=== PATIENT | female | born 1990 | race Caucasian/White ===

== ENCOUNTER 2016-08-16 19:03 | Emergency (ER) | payer MEDICAID ==
[~2016-08-16] VITALS: Ht 165.1 cm; Wt 143.8 kg
[2016-08-16 19:09] VITALS: BP 154/97
[2016-08-16] MEDS ORDERED: DEXAMETHASONE 4 MG TABLET PO STA (19:48)
[2016-08-16] MEDS ORDERED: DEXAMETHASONE 4 MG TABLET ONE (19:53)
== END 2016-08-16 20:00 | disposition home or self-care (01) ==
LOC: ED 19:56
DX: J20.8 Acute bronchitis due to other specified organisms (principal); H10.32 Unspecified acute conjunctivitis, left eye
CPT/HCPCS: 99283

== ENCOUNTER 2016-12-25 13:17 | Emergency (ER) | payer MEDICAID ==
[~2016-12-25] VITALS: Ht 170.2 cm; Wt 144.6 kg
[2016-12-25 13:24] VITALS: BP 144/88
[2016-12-25 14:35] LABS: BLOOD UREA NITROGEN 10 mg/dL (7-18)
[2016-12-25 14:39] LABS: ASPARTATE AMINO TRANSFERASE 17 U/L (15-37)
[2016-12-25 15:17] LABS: HCG UR OBC PASS
== END 2016-12-25 15:53 | disposition home or self-care (01) ==
LOC: ED 15:48
DX: R11.2 Nausea with vomiting, unspecified (principal); N30.00 Acute cystitis without hematuria
CPT/HCPCS: 36415; 80053; 81001; 81025; 83690; 85025; 87086; 99284

== ENCOUNTER 2016-12-26 19:41 | Emergency (ER) | payer MEDICAID ==
[~2016-12-26] VITALS: Ht 170.2 cm; Wt 143.0 kg
[2016-12-26] MEDS ORDERED: ONDANSETRON ODT 4 MG PO ONE (20:30)
[2016-12-26 21:57] LABS: BLOOD UREA NITROGEN 13 mg/dL (7-18)
[2016-12-26 22:00] LABS: ASPARTATE AMINO TRANSFERASE 18 U/L (15-37)
[2016-12-26 22:03] LABS: HCG UR OBC PASS
[2016-12-26 22:37] VITALS: BP 117/75
== END 2016-12-26 22:41 | disposition home or self-care (01) ==
LOC: ED 21:14
DX: R11.2 Nausea with vomiting, unspecified (principal); R10.9 Unspecified abdominal pain
CPT/HCPCS: 36415; 80053; 81025; 83690; 85025; 99284

== ENCOUNTER 2018-07-25 19:28 | Emergency (ER) | payer SELFPAY ==
[~2018-07-25] VITALS: Ht 165.1 cm; Wt 127.5 kg
--- NOTE | 2018-07-25 20:00 | NUR ---
PT. TO ED WITH C/O LEFT RIB/SIDE PAIN WORSE WITH DEEP BREATHING. DENIES ANY RECENT LONG TRAVEL. DENIES BIRHT CONTROL USE. 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 DENIES ANY MEDICAL HX OR DAILY MEDS. DR. CURRAN HAS BEEN IN TO EVAL AND DISCUSS POC. CALL LIGHT IN REACH. EKG WAS DONE IN TRIAGE.
[2018-07-25 20:26] LABS: ANION GAP 3 mmol/L (5-15); CHLORIDE 110 mmol/L (98-107); CREATININE 0.86 mg/dL (0.55-1.02)
--- NOTE | 2018-07-25 21:05 | NUR ---
CHART UP FOR RECHECK BY SONA.
[2018-07-25 21:10] VITALS: BP 138/70
== END 2018-07-25 21:16 | disposition home or self-care (01) ==
LOC: ED 21:10
DX: R07.89 Other chest pain (principal); M54.9 Dorsalgia, unspecified
CPT/HCPCS: 36415; 71045; 80048; 82040; 85379; 93005; 99284

== ENCOUNTER 2020-05-07 07:45 | Emergency (ER) | payer MEDICAID, MEDICARE ==
[~2020-05-07] VITALS: Ht 165.1 cm; Wt 130.1 kg
[~2020-05-07 07:45] MED LIST: ACET650S12 PR; CLIN300C9 PO
[2020-05-07] MEDS ORDERED: KETOROLAC 30 MG/1 ML ONE (08:15)
[2020-05-07] MEDS ORDERED: DIAZEPAM 5 MG TABLET ONE (08:15)
[2020-05-07] MEDS ORDERED: HYDROcodone/APAP 5/325 TABLET ONE (08:16)
--- NOTE | 2020-05-07 08:25 | NUR ---
PATIENT IS A 30F WHO STARTED HAVING LOWER BACK PAIN RADIATING DOWN HER LEFT LEG YESTERDAY AFTER BENDING TO PICK SOMETHING UP. MEDICATED THE PATIENT PER EMAR AND SHE IS RESTING COMFORTABLY. CALL LIGHT WITHIN REACH.
[2020-05-07] MEDS ORDERED: DIAZEPAM 5 MG TABLET PO ONE (08:30)
[2020-05-07] MEDS ORDERED: HYDROcodone/APAP 5/325 TABLET PO ONE (08:30)
[2020-05-07] MEDS ORDERED: KETOROLAC 30 MG/1 ML IM ONE (08:30)
--- NOTE | 2020-05-07 09:08 | NUR ---
PATIENT RESTING COMFORTABLY WITH LESS DISCOMFORT, TALKING ON CELL PHONE. CALL LIGHT WITHIN REACH, BED RAILS UP.
[2020-05-07 09:29] VITALS: BP 115/64
--- NOTE | 2020-05-07 09:30 | NUR ---
Patient/Caregiver given discharge instructions and they have confirmed that they understand the instructions. Patient ambulatory with steady gait. PATIENT HAS RIDE WAITING IN THE LOBBY
== END 2020-05-07 09:31 | disposition home or self-care (01) ==
LOC: ED 08:26
DX: M54.42 Lumbago with sciatica, left side (principal)
CPT/HCPCS: 96372; 99283; J1885